=== PATIENT | male | born 2000 | race Caucasian/White ===

== ENCOUNTER 2025-08-13 23:26 | Emergency (ER) | payer BC ==
[~2025-08-13] VITALS: Ht 195.6 cm; Wt 88.5 kg
[2025-08-14] MEDS ORDERED: TDAP [DIPH/PERTUSSIS/TET] 0.5 ML VIAL IM ONE (00:02)
[2025-08-14] MEDS ORDERED: IBUPROFEN 400 MG TABLET ONE (00:02)
[2025-08-14] MEDS ORDERED: SILVER SULFADIAZINE CREAM 25 GM TUBE ONE (00:02)
[2025-08-14] MEDS: IBUPROFEN 400 MG TABLET PO ONE (00:05)
[2025-08-14] MEDS: SILVER SULFADIAZINE CREAM 25 GM TUBE TP ONE (00:06)
[2025-08-14] MEDS: TDAP [DIPH/PERTUSSIS/TET] 0.5 ML VIAL IM ONE (00:09)
[2025-08-14 00:39] VITALS: BP 132/78; TEMP 98; O2SAT 97
== END 2025-08-14 00:40 | disposition home or self-care (01) ==
LOC: ER 23:30
DX: T23.101A Burn of first degree of right hand, unspecified site, initial encounter (principal); Z88.0 Allergy status to penicillin; X08.8XXA Exposure to other specified smoke, fire and flames, initial encounter; Y93.89 Activity, other specified; Y92.89 Other specified places as the place of occurrence of the external cause; Y99.8 Other external cause status
CPT/HCPCS: 90715